=== PATIENT | female | born 1985 | race Caucasian/White ===

== ENCOUNTER 2025-05-12 23:05 | Inpatient (IN) | payer BC ==
[~2025-05-12] VITALS: Ht 177.8 cm; Wt 82.4 kg
[2025-05-12 23:32] LABS: BASOPHILS ABSOLUTE AUTO 0.02 K/mm3 (0.00-0.23); BASOPHILS PERCENT AUTO 0 % (0-2); EOSINOPHILS ABSOLUTE AUTO 0.15 K/mm3 (0.00-0.68); EOSINOPHILS PERCENT AUTO 2 % (0-6); Hematocrit 39.4 % (33.0-51.0); Hemoglobin 13.6 g/dL (11.5-16.0); IMMATURE GRAN ABSOLUTE AUTO 0.02 K/mm3 (0.00-0.10); IMMATURE GRAN PERCENT AUTO 0 % (0-1); LYMPHOCYTES ABSOLUTE AUTO 2.34 K/mm3 (0.84-5.20); LYMPHOCYTES PERCENT AUTO 27 % (21-46); MONOCYTES ABSOLUTE AUTO 0.85 K/mm3 (0.16-1.47); MONOCYTES PERCENT AUTO 10 % (4-13); Mean Corpuscular HGB Conc 34.5 g/dL (31.5-36.5); Mean Corpuscular Volume 89 fL (80-100); NEUTROPHILS ABSOLUTE AUTO 5.44 K/mm3 (1.96-9.15); NEUTROPHILS PERCENT AUTO 62 % (41-73); NRBC ABSOLUTE 0.00 K/mm3 (0.00-0.02); NRBC Auto 0.0 /100 WBC (0.0-0.2); Platelet Count 240 K/mm3 (150-400); RDW Coefficient Variation 13.3 % (11.7-14.2); RDW Standard Deviation 43.5 fL (35.1-46.3)
[2025-05-12] MEDS ORDERED: LORazepam 2 MG/ML 1ML Injection ONE (23:41)
[2025-05-12] MEDS ORDERED: levETIRAcetam 2,000 MG in NS 100 ML IV ONE ×2 (23:45→23:50)
[2025-05-12 23:59] LABS: Magnesium, Blood 2.2 mg/dL (1.6-2.4); Thyroid Stimulating Hormone 10.4 uIU/mL (0.360-4.800)
[2025-05-13] VITALS (12 sets, daily range): BP systolic 95–129; BP diastolic 60–87
[2025-05-13] LABS: Alanine Aminotransfer (ALT/SGP 34.0 U/L (12-78); Albumin, Blood 3.6 g/dL (3.4-5.0); Albumin/Globulin Ratio 1.0 (0.8-1.8); Anion Gap 9.0 mmol/L (3-11); Aspartate Aminotrans (AST/SGOT 32.0 U/L (12-37); Bilirubin, Total 0.5 mg/dL (0.1-1.0); Blood Urea Nitrogen 7.0 mg/dL (8-24); CO2, Blood 23.0 mmol/L (21-32); Calcium, Blood 8.5 mg/dL (8.5-10.1); Chloride, Blood 107.0 mmol/L (98-108); Creatinine, Blood 0.66 mg/dL (0.40-1.00); Globulin, Blood 3.6 g/dL (2.2-4.0); Glucose, Blood 85.0 mg/dL (70-99); Potassium, Blood 3.9 mmol/L (3.5-5.5); Sodium, Blood 135.0 mmol/L (136-145); Total Protein, Blood 7.2 g/dL (6.4-8.2)
[2025-05-13] MEDS ORDERED: FLU VACC TS2025-26(6MOS UP)/PF 45 MCG/0.5 ML SYRINGE IM SCH (02:35)
[2025-05-13] MEDS ORDERED: LORazepam 2 MG/ML 1ML Injection IV PRN (02:55)
[2025-05-13] MEDS ORDERED: AMPDEX5 PO ×2 (03:01→12:43)
[2025-05-13] MEDS ORDERED: SERT50 PO (03:02)
[2025-05-13 03:17] LABS: BASOPHILS ABSOLUTE AUTO 0.02 K/mm3 (0.00-0.23); BASOPHILS PERCENT AUTO 0 % (0-2); EOSINOPHILS ABSOLUTE AUTO 0.02 K/mm3 (0.00-0.68); EOSINOPHILS PERCENT AUTO 0 % (0-6); Hematocrit 39.3 % (33.0-51.0); Hemoglobin 13.6 g/dL (11.5-16.0); IMMATURE GRAN ABSOLUTE AUTO 0.03 K/mm3 (0.00-0.10); IMMATURE GRAN PERCENT AUTO 0 % (0-1); LYMPHOCYTES ABSOLUTE AUTO 1.15 K/mm3 (0.84-5.20); LYMPHOCYTES PERCENT AUTO 9 % (21-46); MONOCYTES ABSOLUTE AUTO 0.77 K/mm3 (0.16-1.47); MONOCYTES PERCENT AUTO 6 % (4-13); Mean Corpuscular HGB Conc 34.6 g/dL (31.5-36.5); Mean Corpuscular Volume 88 fL (80-100); NEUTROPHILS ABSOLUTE AUTO 10.42 K/mm3 (1.96-9.15); NEUTROPHILS PERCENT AUTO 84 % (41-73); NRBC ABSOLUTE 0.00 K/mm3 (0.00-0.02); NRBC Auto 0.0 /100 WBC (0.0-0.2); Platelet Count 262 K/mm3 (150-400); RDW Coefficient Variation 13.2 % (11.7-14.2); RDW Standard Deviation 42.9 fL (35.1-46.3)
[2025-05-13 03:41] LABS: Alanine Aminotransfer (ALT/SGP 34.0 U/L (12-78); Albumin, Blood 3.4 g/dL (3.4-5.0); Albumin/Globulin Ratio 1.0 (0.8-1.8); Anion Gap 6.0 mmol/L (3-11); Aspartate Aminotrans (AST/SGOT 27.0 U/L (12-37); Bilirubin, Total 0.5 mg/dL (0.1-1.0); Blood Urea Nitrogen 8.0 mg/dL (8-24); CO2, Blood 26.0 mmol/L (21-32); Calcium, Blood 8.5 mg/dL (8.5-10.1); Chloride, Blood 107.0 mmol/L (98-108); Creatinine, Blood 0.66 mg/dL (0.40-1.00); Globulin, Blood 3.4 g/dL (2.2-4.0); Glucose, Blood 158.0 mg/dL (70-99); Potassium, Blood 3.2 mmol/L (3.5-5.5); Sodium, Blood 136.0 mmol/L (136-145); Total Protein, Blood 6.8 g/dL (6.4-8.2)
--- NOTE | 2025-05-13 04:15 | NUR ---
ADMIT NOTE PT ARRIVES VIA GURNEY FROM ED AT 0235, SOMNOLENT BUT IN NO APPARENT DISTRESS. PT MOVES SELF FROM ED BED TO ICU BED. SEIZURE PADS PLACED. PT AFEBRILE. CN'S GROSSLY INTACT. PT FOLLOWS COMMANDS, BUT FALLS ASLEEP QUICKLY. AND MOTHER ARE UTILIZED FOR HISTORY QUESTIONS. PT IN SINUS RHYTHM IN 90'S WITH STABLE BP. PT DENIES CHEST PAIN/PRESSURE OR SOB. PT ON 2L NC WITH SAT > 95%. LUNGS CLEAR AND RHONCHOUS AROUND UPPER AIRWAY. BOWEL SOUNDS HYPOACTIVE. PT DENIES AB PAIN, N/V. PT HAS ONE IV IN RIGHT FA, WHICH FLUSHES BUT DOESN'T DRAW BACK. MOST RECENT LABS SHOW POTASSIUM OF 3.2, CORRECTED LA, AND HIGH TSH. MRI SCHEDULED FOR MORNING. NEED TO FINISH ASKING PT QUESTIONS AND HAVE HER SIGN DOCUMENT. WILL REVIEW AND CONTINUE PLAN OF CARE.
--- NOTE | 2025-05-13 04:31 | NUR ---
UPDATE ON MRI DOCUMENTATION: MOST OF MRI QUESTIONS ANSWERED WITH HELP OF FAMILY. PT HAS IUD BUT THE TYPE IS NOT KNOWN AND THE DOCUMENT HAS YET TO BE SIGNED.
--- NOTE | 2025-05-13 07:37 | NUR ---
ASSUMPTION OF CARE RECEIVED REPORT FROM [facility] NURSE. PT IS DROWSY BUT AROUSABLE. PT ALERT TO SELF, OTHERS, AND PLACE. PT ON RA, SPO2> 92%. HR IN 60S, MAP>65, PT IN NSR. NO BM DURING NOC SHIFT. PT FATIGUED AND SLEEPING. PIV ON RWR, WNL. PT DENIES CHEST PAIN AND SOB. NO NEEDS EXPRESSED AT THIS TIME AND CALL LIGHT WITHIN REACH.
--- NOTE | 2025-05-13 07:44 | NUR ---
SHIFT SUMMARY PT SLEEPING BUT AWAKES TO VOICE AND FOLLOWS COMMANDS. MAEW. AFEBRILE. NO EVIDENCE OF SEIZURE ACTIVITY SINCE ADMIT. SEIZURE PADS REMAIN ON BED. PT IN SINUS RHYTHM, RATE 90-100, WITH STABLE BP. O2 SATURATION > 95% ON 1L NC. PT DENIED CHEST PAIN/PRESSURE OR SOB. BOWEL SOUNDS ACTIVE. NO BM SINCE ADMIT. NO URINARY OUTPUT SINCE ADMIT EITHER. PT IS SALINE LOCKED. POTASSIUM OF 3.2 PROMPTED CALL TO PROVIDER AND ORDER FOR 40MEQ OF KCL. PT SCHEDULED FOR MRI TODAY. BEDSIDE SHIFT REPORT GIVEN TO DAY RN.
[2025-05-13] MEDS ORDERED: Enoxaparin 40 MG/0.4 ML SYR SC SCH (09:00)
[2025-05-13] MEDS ORDERED: LevETIRAcetam 100 MG/ML 5ML ORAL SYR PO SCH (09:00)
[2025-05-13] MEDS ORDERED: SERT100 PO (12:42)
[2025-05-13] MEDS ORDERED: AMPDEX15CR PO (12:43)
--- NOTE | 2025-05-13 18:30 | NUR ---
SHIFT SUMMARY PT IS A&OX4, FOLLOWS COMMANDS AND USES CALL LIGHT APPROPRIATELY. PT ON RA, SPO2>92%. HR IN 70S, MAP >65. PT DENIES CHEST PAIN/PRESSURE. PT AMBULATES TO BSC. PT HAS HAD NO SEIZURE ACTIVITY FOR DURATION OF SHIFT. PT REPORTS NO PAIN AND "FEELS LIKE HER NORMAL SELF." PT HAS BEEN DROWSY MOST OF SHIFT, BUT AROUSABLE TO VERBAL STIMULI AND ORIENTED T/O SHIFT AND Q2 NEURO CHECKS. CALL LIGHT WITHIN REACH AND NO NEEDS EXPRESSED AT THIS TIME.
--- NOTE | 2025-05-13 20:31 | NUR ---
LOST RING: PT STATES WHEN SHE WENT TO IMAGING FOR HER MRI THAT THEY HAD HER TAKE HER WEDDING RING OFF WHICH IS A GOLD BAND AND SHE DID NOT RETURN WITH IT. IMAGING WAS NOTIFIED WITH NO LUCK FINDING IT. PT STATES SHE MAY HAVE PUT IT ON THE WHEELCHAIR, IMAGING SAID THEY WILL KEEP LOOKING.
[2025-05-14 00:01] VITALS: BP 120/68
[2025-05-14 03:21] LABS: BASOPHILS ABSOLUTE AUTO 0.03 K/mm3 (0.00-0.23); BASOPHILS PERCENT AUTO 0 % (0-2); EOSINOPHILS ABSOLUTE AUTO 0.13 K/mm3 (0.00-0.68); EOSINOPHILS PERCENT AUTO 2 % (0-6); Hematocrit 40.1 % (33.0-51.0); Hemoglobin 13.5 g/dL (11.5-16.0); IMMATURE GRAN ABSOLUTE AUTO 0.01 K/mm3 (0.00-0.10); IMMATURE GRAN PERCENT AUTO 0 % (0-1); LYMPHOCYTES ABSOLUTE AUTO 2.03 K/mm3 (0.84-5.20); LYMPHOCYTES PERCENT AUTO 27 % (21-46); MONOCYTES ABSOLUTE AUTO 0.65 K/mm3 (0.16-1.47); MONOCYTES PERCENT AUTO 9 % (4-13); Mean Corpuscular HGB Conc 33.7 g/dL (31.5-36.5); Mean Corpuscular Volume 89 fL (80-100); NEUTROPHILS ABSOLUTE AUTO 4.69 K/mm3 (1.96-9.15); NEUTROPHILS PERCENT AUTO 62 % (41-73); NRBC ABSOLUTE 0.00 K/mm3 (0.00-0.02); NRBC Auto 0.0 /100 WBC (0.0-0.2); Platelet Count 243 K/mm3 (150-400); RDW Coefficient Variation 13.3 % (11.7-14.2); RDW Standard Deviation 43.7 fL (35.1-46.3)
[2025-05-14 03:29] VITALS: BP 142/81
[2025-05-14 03:42] LABS: Alanine Aminotransfer (ALT/SGP 35.0 U/L (12-78); Albumin, Blood 3.3 g/dL (3.4-5.0); Albumin/Globulin Ratio 1.0 (0.8-1.8); Anion Gap 7.0 mmol/L (3-11); Aspartate Aminotrans (AST/SGOT 30.0 U/L (12-37); Bilirubin, Total 0.9 mg/dL (0.1-1.0); Blood Urea Nitrogen 8.0 mg/dL (8-24); CO2, Blood 26.0 mmol/L (21-32); Calcium, Blood 8.3 mg/dL (8.5-10.1); Chloride, Blood 107.0 mmol/L (98-108); Creatinine, Blood 0.69 mg/dL (0.40-1.00); Globulin, Blood 3.3 g/dL (2.2-4.0); Glucose, Blood 110.0 mg/dL (70-99); Potassium, Blood 3.9 mmol/L (3.5-5.5); Sodium, Blood 136.0 mmol/L (136-145); Total Protein, Blood 6.6 g/dL (6.4-8.2)
--- NOTE | 2025-05-14 05:24 | NUR ---
SHIFT SUMMARY: PT A/Ox4 AND ABLE TO MAKE NEEDS KNOWN. PT SLEPT WELL T/O THE NIGHT, NO SEIZURE ACTIVITY NOTED. VSS. MONITOR SHOWS SINUS RYTHM, RATE 60s. PT ABLE TO AMBULATE IN ROOM AND USE TOILET SBA FOR CORDS. MOM AT BEDSIDE T/O THE NIGHT. WILL REPORT TO ONCOMING RN.
--- NOTE | 2025-05-14 07:30 | NUR ---
ASSUMPTION OF CARE ASSUMED CARE OF PT APPROX 0700. PT REMAINS A&0 X4, ANSWERS QUESTIONS APPROPRIATELY AND ABLE TO MAKE NEEDS KNOWN. PATIENT IS ABLE TO AMBULATE IN THE ROOM INDEPENDENTLY. PARENTS ARE AT BEDSIDE. PT DENIES HEADACHE/CONFUSION. VITAL SIGNS STABLE, DENIES UNMET NEEDS AT THIS TIME. PLAN FOR D/C HOME TODAY WITH REFERRAL TO PCP AND NEUROLOGY. CALL LIGHT WITHIN REACH.
[2025-05-14] MEDS ORDERED: LEVE500 PO (10:33)
--- NOTE | 2025-05-14 11:02 | NUR ---
DISCHARGE PT DISCHARGE HOME WITH FAMILY AT BEDSIDE, DISCHARGE/NEW MEDICATION EDUCATION PROVIDED IN WRITTEN AND VERBAL FORMAT, PT EXPRESSED UNDERSTANDING. PT VS STABLE, IV REMOVED WNL, ALL PT BELONGINGS PACKED AND TAKEN BY PT. PT REFUSED WHEELCHAIR ESCORT.
== END 2025-05-14 10:54 | disposition home or self-care (01) | DRG 101 ==
LOC: ER 23:05 → ICUE 05-13 01:59
PROVIDERS: Student in an Organized Health Care Education/Training Program; ADMIT Internal Medicine
DX: R56.9 Unspecified convulsions (principal); E03.9 Hypothyroidism, unspecified; E87.6 Hypokalemia; F90.9 Attention-deficit hyperactivity disorder, unspecified type; F41.9 Anxiety disorder, unspecified; R74.02 Elevation of levels of lactic acid dehydrogenase [LDH]; Z88.1 Allergy status to other antibiotic agents
CPT/HCPCS: 36415; 70450; 70553; 80053; 83605; 83735; 84439; 84443; 84703; 85025; 93005; 93010; 96365; 96366; 96375; 99285-25; A9270; A9579; G0378; J1650; J1953; J2060